=== PATIENT | female | born 1985 | race Caucasian/White ===

== ENCOUNTER 2020-05-03 18:37 | Emergency (ER) | payer MEDICAID ==
[~2020-05-03] VITALS: Ht 167.6 cm; Wt 77.1 kg
[2020-05-03 18:38] VITALS: BP 107/67
[2020-05-03 18:49] VITALS: BP 107/67
--- NOTE | 2020-05-03 18:49 | NUR ---
PATIENT BIB [facility] [facility]. PATIENT EXAMINED BY KATELIN SCHAEFER. PATIENT MEDICALLY CLEARED AND RELEASED IN CUSTODY IN STABLE CONDITION. ORIGINAL PRE-BOOK FORM GIVEN TO OFFICER VESTA. DISCHARGE INSTRUCTIONS GIVEN TO OFFICER. PT D/C IN STABLE CONDITION.
== END 2020-05-03 18:49 ==
LOC: MED 18:37
DX: R21 Rash and other nonspecific skin eruption (principal); Z02.89 Encounter for other administrative examinations
CPT/HCPCS: 99283